=== PATIENT | female | born 1985 | race Caucasian/White ===

== ENCOUNTER 2016-09-29 16:33 | Inpatient (IN) | payer BC ==
[~2016-09-29 16:33] MED LIST: Lidocaine 1% 50 ML MDV INJECT SCH
[2016-09-29] MEDS ORDERED: Sodium Chloride 0.9% 10 ML Syringe FLUSH PRN (18:23)
[2016-09-29] MEDS ORDERED: Ondansetron 4 MG Tab.DIS PO PRN (18:23)
[2016-09-29] MEDS ORDERED: fentaNYL 100 MCG/2 ML SDV IVPUSH PRN (18:23)
[2016-09-29] MEDS ORDERED: Acetaminophen 325 MG Tab PO PRN (18:23)
--- NOTE | 2016-09-29 18:40 | PCM.LDHP ---
L&D History of Present Illness - General Date of Service: 09/29/16 (labor) Admit Problem/Dx: Patient Status Order with Admit Dx/Problem 09/29/16 18:23 Patient Status [ADT] Routine Admission Diagnosis/Problem Admission Diagnosis/Problem Labor established Source of Information: Patient History Limitations: Reports: No Limitations - History of Present Illness Introduction:: 39 2/7 NACHO 10/04/16 presents with contractions. since this afternoon. CE 4/ 80/0 vertex, AROM clear at 1830 Labs: ABO B pos GBS neg Rubella Immune HIV neg Timing/Duration: Reports: minutes: (2-3) Location, : Reports: Abdomen Quality: Reports: Pressure Severity: Mild Improves with: Reports: None Worsens with: Reports: None Associated Symptoms: Reports: vaginal fluid - Related Data Allergies/Adverse Reactions: Allergies Allergy/AdvReac Type Severity Reaction Status Date / Time azithromycin [From Zithromax] Allergy Itching Verified 09/27/16 21:58 Home Medications: Home Meds Vits #93/Iron Fum/FA [ Formula Tablet] 1 each PO DAILY [History] Past Medical History Genitourinary History: Reports: UTI, Recurrent [employer] History: Reports: : 4 Para: 1 LMP (Approximate): (NACHO 10/04/16) Other OB/BYN History: NACHO-10/04/2016 Psychiatric History: Reports: Other (See Below) Other Psychiatric History: depression - Infectious Disease History Infectious Disease History: Reports: Chicken Pox - Past Surgical History Head Surgeries/Procedures: Reports: None Social & Family History - Family History Cardiac: Reports: High Cholesterol GI: Reports: Irritable Bowel Syndrome Psychiatric: Reports: Anxiety, Depression - Tobacco Use Smoking Status *Q: Never Smoker Second Hand Smoke Exposure: No - Caffeine Use Caffeine Use: Reports: Soda Other Caffeine Use: very occassional - Recreational Drug Use Recreational Drug Use: No H&P Review of Systems - Review of Systems: Review Of Systems: See Below General: Reports: No Symptoms HEENT: Reports: No Symptoms Pulmonary: Reports: No Symptoms Cardiovascular: Reports: No Symptoms Gastrointestinal: Reports: No Symptoms Genitourinary: Reports: No Symptoms Musculoskeletal: Reports: No Symptoms Skin: Reports: No Symptoms Psychiatric: Reports: No Symptoms Neurological: Reports: No Symptoms Hematologic/Lymphatic: Reports: No Symptoms Immunologic: Reports: No Symptoms L&D Exam - Exam Exam: See Below - Vital Signs Weight: 220 lb - OB Specific Contraction Intensity: Mild Movement: Active Heart Tones: Present Heart Tones per Min: 120 Heart Rate (FHR) Variability: Moderate (6-25 bmp) Presentation: Vertex Estimated Weight: 8-9 pounds - Vargas Score Vargas Score Cervix Position: Anterior Vargas Score Consistency: Soft Vargas Score Effacement: >80% Vargas Score Dilation: 3-4 cm Vargas Score Infant's Station: -1 ,0 Vargas Score Total: 11 - Exam General: Alert, Oriented HEENT: PERRLA, Conjunctiva Clear, Hearing Intact, Mucosa Moist & [place], Posterior Pharynx Clear, Pupils Equal Neck: Supple Lungs: Clear to Auscultation, Normal Respiratory Effort Cardiovascular: Regular Rate, Regular Rhythm GI/Abdominal Exam: Normal Bowel Sounds, Soft, Non-Tender Rectal Exam: Normal Exam Genitourinary: Normal external exam, Cervical dilitation, Enlarged uterus Back Exam: Normal Inspection, Full Range of Motion Extremities: Normal Inspection, Normal Capillary Refill, Pedal Edema (varicose veins) Skin: Warm, Dry Neurological: Cranial Nerves Intact, Reflexes Equal Bilateral Psychiatric: Alert, Normal Affect, Normal Mood - Patient Data Lab Results Last 24 hrs: Laboratory Results - last 24 hr 09/29/16 Range/Units 16:41 Urine Color Yellow Urine Appearance Cloudy Urine pH 6.0 (4.5-8.0) Ur Specific [place] 1.020 (1.008-1.030) Urine Protein Negative (NEGATIVE) mg/dL Urine Glucose (UA) Normal (NEGATIVE) mg/dL Urine Ketones 15 H (NEGATIVE) mg/dL Urine Occult Blood Negative (NEGATIVE) Urine Nitrite Negative (NEGATIVE) Urine Bilirubin Negative (NEGATIVE) Urine Urobilinogen Normal (NORMAL) mg/dL Ur Leukocyte Esterase Negative (NEGATIVE) Urine RBC 0-5 (0-5) Urine WBC 0-5 (0-5) Ur Epithelial Cells Many Amorphous Sediment Not seen Urine Bacteria Moderate Urine Mucus Few - Problem List (1) UTI (urinary tract infection) SNOMED Code(s): 34581073 ICD Code: N39.0 - URINARY TRACT INFECTION, SITE NOT SPECIFIED Status: Acute Current Visit: Yes Qualifiers: Urinary tract infection type: acute cystitis (2) Active labor SNOMED Code(s): 63280619 ICD Code: ASX9302 - Status: Acute Current Visit: Yes (3) SNOMED Code(s): 77978471 ICD Code: Z34.90 - ENCNTR FOR SUPRVSN OF NORMAL , UNSP, UNSP TRIMESTER Status: Acute Current Visit: Yes Qualifiers: Weeks of gestation: 39 weeks Qualified Code(s): Z3A.39 - 39 weeks gestation of Problem List Initiated/Reviewed/Updated: Yes Orders Last 24hrs: Active Orders 24 hr Category Date Time Status Patient Status [ADT] Routine ADT 09/29/16 18:23 Ordered Antiembolic Devices [RC] .Routine Care 09/29/16 18:32 Ordered Communication Order [RC] ASDIRECTED Care 09/29/16 18:23 Ordered Heart Tones [RC] PER UNIT ROUTINE Care 09/29/16 18:23 Ordered May Shower [RC] ASDIRECTED Care 09/29/16 18:23 Ordered Notify Provider Vital Signs [RC] PRN Care 09/29/16 18:23 Ordered Notify Provider [RC] PRN Care 09/29/16 18:23 Ordered OB Check [OM.PC] Click to Edit Care 09/29/16 16:41 Ordered Up ad Sara [RC] ASDIRECTED Care 09/29/16 18:23 Ordered VTE/DVT Education [RC] Click to Edit Care 09/29/16 18:32 Ordered Vital Signs [RC] PER UNIT ROUTINE Care 09/29/16 18:23 Ordered Regular Diet [DIET] Diet 09/29/16 Dinner Ordered CBC W/O DIFF,HEMOGRAM [HEME] Routine Lab 09/29/16 18:23 Ordered Acetaminophen [Tylenol] Med 09/29/16 18:23 Ordered 650 mg PO Q4H PRN Ondansetron [Zofran ODT] Med 09/29/16 18:23 Ordered 4 mg PO Q4H PRN Oxytocin/Normal Saline [Pitocin in NS 20 Units/1,000 ML Med 09/29/16 18:45 Ordered ] 1,000 ml IV TITRATE Sodium Chloride 0.9% [Saline Flush] Med 09/29/16 18:23 Ordered 10 ml FLUSH ASDIRECTED PRN fentaNYL [Sublimaze] Med 09/29/16 18:23 Ordered 100 mcg IVPUSH Q1H PRN DVT/VTE Prophylaxis Reflex [OM.PC] Routine Oth 09/29/16 18:23 Ordered Saline Lock Insert [OM.PC] Routine Oth 09/29/16 18:23 Ordered Resuscitation Status Routine Resus Stat 09/29/16 18:23 Ordered Medication Orders Acetaminophen (Tylenol) 650 mg PO Q4H PRN PRN Reason: Pain (Mild 1-3) and fever Fentanyl (Sublimaze) 100 mcg IVPUSH Q1H PRN PRN Reason: Pain (moderate 4-6) Oxytocin/Sodium Chloride (Pitocin In Ns 20 Units/1,000 Ml) 1,000 mls @ 6 mls/ hr IV TITRATE SD; 2 MUNITS/MIN PRN Reason: Protocol Ondansetron HCl (Zofran Odt) 4 mg PO Q4H PRN PRN Reason: Nausea/Vomiting Sodium Chloride (Saline Flush) 10 ml FLUSH ASDIRECTED PRN PRN Reason: Keep Vein Open Assessment/Plan Comment:: 09/29/16 39 2. AROM clear Labor monitor for progression GBS negative Pain management per patient request Plan for vaginal delivery
[2016-09-29] MEDS ORDERED: Oxytocin 10 Units/1 ML SDV ONE (19:53)
[2016-09-29] MEDS ORDERED: Lidocaine 1% 50 ML MDV ONE (19:53)
[2016-09-29] MEDS ORDERED: Naloxone 0.4 MG/ML SDV ONE (19:53)
--- NOTE | 2016-09-29 20:19 | PCM.PNLD ---
Labor Progress Note - VS & Meds Vital Signs: Last Vital Signs Temp 97.2 F 09/29/16 19:46 Pulse 69 09/29/16 19:46 Resp 20 09/29/16 19:46 BP 149/86 H 09/29/16 19:46 Pulse Ox 98 09/29/16 19:46 Active Medications: Current Medications Acetaminophen (Tylenol) 650 mg PO Q4H PRN PRN Reason: Pain (Mild 1-3) and fever Fentanyl (Sublimaze) 100 mcg IVPUSH Q1H PRN PRN Reason: Pain (moderate 4-6) Last Admin: 09/29/16 20:13 Dose: 100 mcg Oxytocin/Sodium Chloride (Pitocin In Ns 20 Units/1,000 Ml) 20 unit in 1,000 mls @ 6 mls/hr IV TITRATE SD; 2 MUNITS/MIN PRN Reason: Protocol Last Admin: 09/29/16 20:14 Dose: 2 munits/min, 6 mls/hr Ondansetron HCl (Zofran Odt) 4 mg PO Q4H PRN PRN Reason: Nausea/Vomiting Sodium Chloride (Saline Flush) 10 ml FLUSH ASDIRECTED PRN PRN Reason: Keep Vein Open Discontinued Medications Oxytocin/Sodium Chloride (Pitocin In Ns 20 Units/1,000 Ml) Confirm Administered Dose 20 unit in 1,000 mls @ as directed .ROUTE .STK-MED ONE Stop: 09/29/16 19:55 Lidocaine HCl (Xylocaine 1%) Confirm Administered Dose 100 ml .ROUTE .STK-MED ONE Stop: 09/29/16 19:54 Naloxone HCl (Narcan) Confirm Administered Dose 0.4 mg .ROUTE .STK-MED ONE Stop: 09/29/16 19:54 Oxytocin (Pitocin) Confirm Administered Dose 10 unit .ROUTE .STK-MED ONE Stop: 09/29/16 19:54 - Uterine Contractions Uterine Monitoring Mode: External [place] Contraction Frequency (min): 2-3 Contraction Duration (sec): 50-70 Contraction Intensity: Strong Uterine Resting Tone: Soft - Monitoring Monitor Mode: Doppler/Auscultation Heart Rate (FHR) Baseline: 1,120 Heart Rate (FHR) Variability: Moderate (6-25 bmp) Accelerations: Present, 15x15 Strip Review: Category I - Vaginal Exam Dilation (cm): 6-7 Effacement (Percent): 100 Station: 0 Cervical Position: Anterior Sterile Vaginal Exam Performed By: Susie Gunn Vaginal Exam Comment: nice progression, - Labor Progress (Free Text) Labor Progress: 09/29/16 Requesting IV pain medication. Fentanyl 50 mcg IV given, In tub anticipate vaginal delivery
[2016-09-29] MEDS ORDERED: Ibuprofen 200 MG Tab, 24 Tab Bulk Bottle PO PRN (21:16)
[2016-09-29] MEDS ORDERED: Benzocaine 20% Top Spray 56 GM Bottle TOP PRN (21:16)
[2016-09-29] MEDS ORDERED: Witch Hazel Medicated Pads 100/Jar TOP PRN (21:16)
[2016-09-29] MEDS ORDERED: Acetaminophen 325 MG Tab, 50 Tab Bulk Bottle PO PRN (21:16)
[2016-09-29] MEDS ORDERED: Lanolin 100% Cream 40 GM Tube TOP PRN (21:16)
--- NOTE | 2016-09-29 21:39 | PCM.DEL ---
L & D Note - General Info Date of Service: 09/29/16 (delivery) Mother's Due Date: 10/04/16 - Delivery Note Labor: Spontaneous Delivery Outcome: Livebirth Infant Delivery Method: Spontaneous Vaginal Delivery Infant Delivery Mode: Spontaneous Presentation: Vertex Nuchal Cord: None Anesthesia Type: Local Anesthetic: Lidocaine (Xylocaine) 1% Plain Local Anesthetic Volume: Other (10 cc) Amniotic Fluid Description: Clear Episiotomy Type: None Laceration: 2nd Degree, Perineal Suture type: Vicryl Suture size: 3-0 Placenta: Intact, Spontaneous Cord: 3 Vessels Estimated Blood Loss: 200 Resuscitation Needed: Yes : Stimulated, Warmed, [place] Used Provider: Susie Gunn Score 1 min: 8 Score 5 min: 9 Score 10 min: 10 Post Delivery Events: Shoulder Dystocia Second Stage Interventions: Reports: Second Nurse Reviewed Heart Tones, Pushing Effectively, Pushing, McRobert's Position Delivery Comments (Free Text/Narrative):: 09/29/16 This 30 year old G4 P now 2 who is 39 2/7 weeks delivered a viable male infant at 2041 via in [place]. Shoulder dystocia, Mc [place] position with suprapubic pressure times one minute. As I started to rotate baby to release anterior shoulder he delivered into my arms. He cried some, was moving and trying to breathe. The cord was clamped and cut he was taken to the warmer where he was dried and stimulated. I used PPV times three breaths, he cried spontaneously and had good tone and heart rate 170's. weight 9.6 Apgars 8,9,10, three vessel cord The placenta was expressed spontaneously intact. The previous episiotomy scar tore, second degree perineal; tear was repaired with 3-0 vicryl in standard fashion. inspection of cervix, vaginal vault and rectum no lacerations. EBL 200cc Mother and baby to post and nursery in stable condition. first stage 8655-9249 Second stage 2227-0087 Third stage 6132-4804 - General Info Date of Service: 09/29/16 Admission Dx/Problem (Free Text): Patient Status Order with Admit Dx/Problem 09/29/16 18:23 Patient Status [ADT] Routine Admission Diagnosis/Problem Admission Diagnosis/Problem Labor established Functional Status: Reports: Pain Controlled - Review of Systems General: Reports: No Symptoms HEENT: Reports: No Symptoms Pulmonary: Reports: No Symptoms Cardiovascular: Reports: No Symptoms Gastrointestinal: Reports: No Symptoms Genitourinary: Reports: No Symptoms Musculoskeletal: Reports: No Symptoms Skin: Reports: No Symptoms Neurological: Reports: No Symptoms Psychiatric: Reports: No Symptoms - Patient Data Vitals - Most Recent: Last Vital Signs Temp 97.2 F 09/29/16 19:46 Pulse 69 09/29/16 19:46 Resp 20 09/29/16 19:46 BP 149/86 H 09/29/16 19:46 Pulse Ox 98 09/29/16 19:46 Weight - Most Recent: 220 lb Lab Results Last 24 Hours: Laboratory Results - last 24 hr 09/29/16 09/29/16 Range/Units 16:41 18:59 WBC 13.6 H (4.5-11.0) K/uL RBC 3.78 (3.30-5.50) M/uL Hgb 10.9 L (12.0-15.0) g/dL Hct 33.4 L (36.0-48.0) % MCV 88 (80-98) fL MCH 29 (27-31) pg MCHC 33 (32-36) % Plt Count 199 (150-400) K/uL Urine Color Yellow Urine Appearance Cloudy Urine pH 6.0 (4.5-8.0) Ur Specific [place] 1.020 (1.008-1.030) Urine Protein Negative (NEGATIVE) mg/dL Urine Glucose (UA) Normal (NEGATIVE) mg/dL Urine Ketones 15 H (NEGATIVE) mg/dL Urine Occult Blood Negative (NEGATIVE) Urine Nitrite Negative (NEGATIVE) Urine Bilirubin Negative (NEGATIVE) Urine Urobilinogen Normal (NORMAL) mg/dL Ur Leukocyte Esterase Negative (NEGATIVE) Urine RBC 0-5 (0-5) Urine WBC 0-5 (0-5) Ur Epithelial Cells Many Amorphous Sediment Not seen Urine Bacteria Moderate Urine Mucus Few Med Orders - Current: Current Medications Acetaminophen (Tylenol) 650 mg PO Q4H PRN PRN Reason: Pain (Mild 1-3) and fever Fentanyl (Sublimaze) 100 mcg IVPUSH Q1H PRN PRN Reason: Pain (moderate 4-6) Last Admin: 09/29/16 20:13 Dose: 100 mcg Oxytocin/Sodium Chloride (Pitocin In Ns 20 Units/1,000 Ml) 20 unit in 1,000 mls @ 6 mls/hr IV TITRATE SD; 2 MUNITS/MIN PRN Reason: Protocol Last Admin: 09/29/16 20:14 Dose: 2 munits/min, 6 mls/hr Ondansetron HCl (Zofran Odt) 4 mg PO Q4H PRN PRN Reason: Nausea/Vomiting Sodium Chloride (Saline Flush) 10 ml FLUSH ASDIRECTED PRN PRN Reason: Keep Vein Open Discontinued Medications Oxytocin/Sodium Chloride (Pitocin In Ns 20 Units/1,000 Ml) Confirm Administered Dose 20 unit in 1,000 mls @ as directed .ROUTE .STK-MED ONE Stop: 09/29/16 19:55 Lidocaine HCl (Xylocaine 1%) Confirm Administered Dose 100 ml .ROUTE .STK-MED ONE Stop: 09/29/16 19:54 Last Admin: 09/29/16 21:17 Dose: 50 ml Naloxone HCl (Narcan) Confirm Administered Dose 0.4 mg .ROUTE .STK-MED ONE Stop: 09/29/16 19:54 Oxytocin (Pitocin) Confirm Administered Dose 10 unit .ROUTE .STK-MED ONE Stop: 09/29/16 19:54 - Exam General: Alert, Oriented HEENT: Pupils Equal, Pupils Reactive, EOMI, Mucous Membr. Moist/[place] Neck: Supple Lungs: Clear to Auscultation, Normal Respiratory Effort Cardiovascular: Regular Rate, Regular Rhythm GI/Abdominal Exam: Normal Bowel Sounds, Soft, Non-Tender (Female) Exam: Normal External Exam, Enlarged Uterus, Vaginal Bleeding Back Exam: Normal Inspection Extremities: Normal Inspection, Normal Range of Motion, Non-Tender, Normal Capillary Refill Skin: Warm, Dry, Intact Neurological: No New Focal Deficit Psy/Mental Status: Alert, Normal Affect, Normal Mood - Problem List & Annotations (1) UTI (urinary tract infection) SNOMED Code(s): 36604942 Code(s): N39.0 - URINARY TRACT INFECTION, SITE NOT SPECIFIED Status: Acute Current Visit: Yes Qualifiers: Urinary tract infection type: acute cystitis (2) Active labor SNOMED Code(s): 40187264 Code(s): QSU0602 - Status: Acute Current Visit: Yes (3) SNOMED Code(s): 27146099 Code(s): Z34.90 - ENCNTR FOR SUPRVSN OF NORMAL , UNSP, UNSP TRIMESTER Status: Acute Current Visit: Yes Qualifiers: Weeks of gestation: 39 weeks Qualified Code(s): Z3A.39 - 39 weeks gestation of - Problem List Review Problem List Initiated/Reviewed/Updated: Yes - My Orders Last 24 Hours: My Active Orders 09/29/16 16:41 OB Check [OM.PC] Click to Edit 09/29/16 18:23 Communication Order [RC] ASDIRECTED May Shower [RC] ASDIRECTED Notify Provider Vital Signs [RC] PRN Notify Provider [RC] PRN Up ad Sara [RC] ASDIRECTED Vital Signs [RC] PER UNIT ROUTINE Acetaminophen [Tylenol] 650 mg PO Q4H PRN Ondansetron [Zofran ODT] 4 mg PO Q4H PRN Sodium Chloride 0.9% [Saline Flush] 10 ml FLUSH ASDIRECTED PRN fentaNYL [Sublimaze] 100 mcg IVPUSH Q1H PRN DVT/VTE Prophylaxis Reflex [OM.PC] Routine Saline Lock Insert [OM.PC] Routine Resuscitation Status Routine 09/29/16 18:32 Antiembolic Devices [RC] .Routine VTE/DVT Education [RC] Click to Edit 09/29/16 18:45 Oxytocin/Normal Saline [Pitocin in NS 20 Units/1,000 ML] 20 unit in 1,000 ml IV TITRATE 09/29/16 21:16 Acetaminophen [Tylenol Bulk Bottle] 325 mg PO Q4H PRN Benzocaine [[id number] 20% [place]] See Dose Instructions TOP Q4H PRN Ibuprofen [Motrin Bulk Bottle] 600 mg PO Q6H PRN Lanolin [Lansinoh HPA] 1 gm TOP ASDIRECTED PRN Witch Rosalva [Tucks] 1 pad TOP ASDIRECTED PRN Assess Lochia [WOMSER] Per Unit Routine Assess Uterine Involution [WOMSER] Per Unit Routine 09/29/16 21:17 Patient Status [ADT] Routine Vital Signs [RC] PFP Ice Therapy [OM.PC] Per Unit Routine Perineal Care [OM.PC] Per Unit Routine Sitz Bath [OM.PC] Per Unit Routine 09/29/16 21:18 Peripheral IV Discontinue [OM.PC] Routine 09/29/16 Dinner Regular Diet [DIET] 09/30/16 05:11 CBC WITH AUTO DIFF [HEME] AM 09/30/16 09:00 Docusate Sodium [Colace] 100 mg PO BID - Assessment Assessment:: 09/29/16 with shoulder dystocia, reduced. perineal tear second degree repaired. negative GBS - Plan Plan:: 09/29/16 39 2/. AROM clear Labor monitor for progression GBS negative Pain management per patient request Plan for vaginal delivery 09/29/16 routine cares HGB in am support sitz bath monitor for bleeding today 24-48 hour stay.
[2016-09-30] MEDS: Docusate Sodium 100 MG Cap PO SCH ×2 (09:48→20:29)
--- NOTE | 2016-09-30 11:14 | PCM.PNPP ---
- General Info Date of Service: 09/30/16 (PPD 1) Admission Dx/Problem (Free Text): Patient Status Order with Admit Dx/Problem 09/29/16 18:23 Patient Status [ADT] Routine Admission Diagnosis/Problem Admission Diagnosis/Problem Labor established Functional Status: Reports: Pain Controlled - Review of Systems General: Reports: No Symptoms HEENT: Reports: No Symptoms Pulmonary: Reports: No Symptoms Cardiovascular: Reports: No Symptoms Gastrointestinal: Reports: No Symptoms Genitourinary: Reports: No Symptoms Musculoskeletal: Reports: No Symptoms Skin: Reports: No Symptoms Neurological: Reports: No Symptoms Psychiatric: Reports: No Symptoms - General Info Date of Service: 09/30/16 - Patient Data Vital Signs - Most Recent: Last Vital Signs Temp 97.4 F 09/30/16 07:34 Pulse 66 09/30/16 07:34 Resp 16 09/30/16 07:34 BP 132/74 09/30/16 07:34 Pulse Ox 100 09/30/16 07:34 Weight - Most Recent: 220 lb I&O - Last 24 Hours: Intake & Output 09/29/16 09/30/16 09/30/16 22:59 06:59 14:59 Intake Total 1000 1000 Balance 1000 1000 Lab Results - Last 24 Hours: Laboratory Results - last 24 hr 09/29/16 09/29/16 09/30/16 Range/Units 16:41 18:59 05:45 WBC 13.6 H 17.3 H (4.5-11.0) K/uL RBC 3.78 3.07 L (3.30-5.50) M/uL Hgb 10.9 L 9.0 L (12.0-15.0) g/dL Hct 33.4 L 27.3 L (36.0-48.0) % MCV 88 89 (80-98) fL MCH 29 29 (27-31) pg MCHC 33 33 (32-36) % Plt Count 199 164 (150-400) K/uL Neut % (Auto) 80 H (36-66) % Lymph % (Auto) 10 L (24-44) % [place] % (Auto) 9 H (2-6) % Eos % (Auto) 0 L (2-4) % Baso % (Auto) 0 (0-1) % Urine Color Yellow Urine Appearance Cloudy Urine pH 6.0 (4.5-8.0) Ur Specific [place] 1.020 (1.008-1.030) Urine Protein Negative (NEGATIVE) mg/dL Urine Glucose (UA) Normal (NEGATIVE) mg/dL Urine Ketones 15 H (NEGATIVE) mg/dL Urine Occult Blood Negative (NEGATIVE) Urine Nitrite Negative (NEGATIVE) Urine Bilirubin Negative (NEGATIVE) Urine Urobilinogen Normal (NORMAL) mg/dL Ur Leukocyte Esterase Negative (NEGATIVE) Urine RBC 0-5 (0-5) Urine WBC 0-5 (0-5) Ur Epithelial Cells Many Amorphous Sediment Not seen Urine Bacteria Moderate Urine Mucus Few Med Orders - Current: Current Medications Acetaminophen (Tylenol Bulk Bottle) 325 - 650 mg PO Q4H PRN PRN Reason: Pain Benzocaine (Vhmv-C-Hvycilw 20% [place]) 0 gm TOP Q4H PRN PRN Reason: Perineal Comfort Measure Last Admin: 09/29/16 22:28 Dose: 1 spray Docusate Sodium (Colace) 100 mg PO BID SD Last Admin: 09/30/16 09:48 Dose: 100 mg Emollient Ointment (Lansinoh Hpa) 0 gm TOP ASDIRECTED PRN PRN Reason: Sore Nipples Oxytocin/Sodium Chloride (Pitocin In Ns 20 Units/1,000 Ml) 20 unit in 1,000 mls @ 6 mls/hr IV TITRATE SD; 2 MUNITS/MIN PRN Reason: Protocol Last Admin: 09/29/16 20:14 Dose: 2 munits/min, 6 mls/hr Ibuprofen (Motrin Bulk Bottle) 600 mg PO Q6H PRN PRN Reason: Pain Last Admin: 09/29/16 22:27 Dose: 600 mg Nitrofurantoin Macrocrystals (Macrobid) 100 mg PO BID SD Ondansetron HCl (Zofran Odt) 4 mg PO Q4H PRN PRN Reason: Nausea/Vomiting Sodium Chloride (Saline Flush) 10 ml FLUSH ASDIRECTED PRN PRN Reason: Keep Vein Open Witch Rosalva (Tucks) 1 pad TOP ASDIRECTED PRN PRN Reason: Hemorrhoids Last Admin: 09/29/16 22:26 Dose: 1 applic Discontinued Medications Acetaminophen (Tylenol) 650 mg PO Q4H PRN PRN Reason: Pain (Mild 1-3) and fever Fentanyl (Sublimaze) 100 mcg IVPUSH Q1H PRN PRN Reason: Pain (moderate 4-6) Last Admin: 09/29/16 20:13 Dose: 100 mcg Oxytocin/Sodium Chloride (Pitocin In Ns 20 Units/1,000 Ml) Confirm Administered Dose 20 unit in 1,000 mls @ as directed .ROUTE .STK-MED ONE Stop: 09/29/16 19:55 Last Admin: 09/29/16 22:28 Dose: Not Given Lidocaine HCl (Xylocaine 1%) Confirm Administered Dose 100 ml .ROUTE .STK-MED ONE Stop: 09/29/16 19:54 Last Admin: 09/29/16 21:17 Dose: 50 ml Naloxone HCl (Narcan) Confirm Administered Dose 0.4 mg .ROUTE .STK-MED ONE Stop: 09/29/16 19:54 Last Admin: 09/29/16 22:28 Dose: Not Given Oxytocin (Pitocin) Confirm Administered Dose 10 unit .ROUTE .STK-MED ONE Stop: 09/29/16 19:54 Last Admin: 09/29/16 22:28 Dose: Not Given - Interaction Infant Disposition, : [place] in Room with Family Interaction: Holding Infant Infant Feeding: Breastfed Infant; Nursed Well Support Person: - Recovery Exam Fundal Tone: Firm Fundal Level: 1 Fingerbreadths Below Umbilicus Fundal Placement: Midline Lochia Amount: Small Lochia Color: Rubra/Red Perineum Description: Intact, Minimal Bruising/Swelling Episiotomy/Laceration: Approximated Bladder Status: Voiding - Exam General: Alert, Oriented HEENT: Pupils Equal Neck: Supple Lungs: Clear to Auscultation, Normal Respiratory Effort Cardiovascular: Regular Rate, Regular Rhythm GI/Abdominal Exam: Normal Bowel Sounds, Soft, Non-Tender, No Organomegaly, No Distention, No Abnormal Bruit, No Mass, Pelvis Stable Extremities: Normal Inspection, Normal Range of Motion, Non-Tender, No Pedal Edema, Normal Capillary Refill Skin: Warm, Dry, Intact Wound/Incisions: Healing Well Neurological: No New Focal Deficit Psy/Mental Status: Alert, Normal Affect, Normal Mood - Problem List & Annotations (1) UTI (urinary tract infection) SNOMED Code(s): 09690417 Code(s): N39.0 - URINARY TRACT INFECTION, SITE NOT SPECIFIED Status: Acute Current Visit: Yes Qualifiers: Urinary tract infection type: acute cystitis (2) Active labor SNOMED Code(s): 09354806 Code(s): BGK9330 - Status: Acute Current Visit: Yes (3) SNOMED Code(s): 79172242 Code(s): Z34.90 - ENCNTR FOR SUPRVSN OF NORMAL , UNSP, UNSP TRIMESTER Status: Acute Current Visit: Yes Qualifiers: Weeks of gestation: 39 weeks Qualified Code(s): Z3A.39 - 39 weeks gestation of - Problem List Review Problem List Initiated/Reviewed/Updated: Yes - My Orders Last 24 Hours: My Active Orders 09/29/16 16:41 OB Check [OM.PC] Click to Edit 09/29/16 18:23 May Shower [RC] ASDIRECTED Notify Provider Vital Signs [RC] PRN Notify Provider [RC] PRN Up ad Sara [RC] ASDIRECTED Vital Signs [RC] Q4H Ondansetron [Zofran ODT] 4 mg PO Q4H PRN Sodium Chloride 0.9% [Saline Flush] 10 ml FLUSH ASDIRECTED PRN DVT/VTE Prophylaxis Reflex [OM.PC] Routine Saline Lock Insert [OM.PC] Routine Resuscitation Status Routine 09/29/16 18:32 Antiembolic Devices [RC] .Routine VTE/DVT Education [RC] Click to Edit 09/29/16 18:45 Oxytocin/Normal Saline [Pitocin in NS 20 Units/1,000 ML] 20 unit in 1,000 ml IV TITRATE 09/29/16 21:16 Acetaminophen [Tylenol Bulk Bottle] 325 - 650 mg PO Q4H PRN Benzocaine [Yhmf-N-Ktvtugg 20% [place]] See Dose Instructions TOP Q4H PRN Ibuprofen [Motrin Bulk Bottle] 600 mg PO Q6H PRN Lanolin [Lansinoh HPA] 0 gm TOP ASDIRECTED PRN Witch Rosalva [Tucks] 1 pad TOP ASDIRECTED PRN Assess Lochia [WOMSER] Per Unit Routine Assess Uterine Involution [WOMSER] Per Unit Routine 09/29/16 21:17 Patient Status [ADT] Routine Ice Therapy [OM.PC] Per Unit Routine Perineal Care [OM.PC] Per Unit Routine Sitz Bath [OM.PC] Per Unit Routine 09/29/16 21:18 Peripheral IV Discontinue [OM.PC] Routine 09/29/16 Dinner Regular Diet [DIET] 09/30/16 09:00 Docusate Sodium [Colace] 100 mg PO BID 09/30/16 21:00 Nitrofurantoin [place]/Macrocryst [Macrobid] 100 mg PO BID - Assessment Assessment:: 09/29/16 with shoulder dystocia, reduced. perineal tear second degree repaired. negative GBS 09/30/16 Doing well today HGB 9 from 10.9 Bleeding has slowed. repair not tender, voiding without problems - Plan Plan:: 09/29/16 39 2/7. AROM clear Labor monitor for progression GBS negative Pain management per patient request Plan for vaginal delivery 09/29/16 routine cares HGB in am support sitz bath monitor for bleeding today 24-48 hour stay. 09/30/16 Routine cares Home tomorrow
[2016-09-30] MEDS: NITROFURANTOIN PO SCH (20:29)
[2016-09-30] MEDS: [UNRECOGNIZED DRUG - OTHER] PO SCH (20:29)
[2016-10-01 07:48] VITALS: BP 118/68
--- NOTE | 2016-10-01 09:38 | PCM.PNPP ---
- General Info Date of Service: 10/01/16 (PPD 2 D/C) Admission Dx/Problem (Free Text): Patient Status Order with Admit Dx/Problem 09/29/16 18:23 Patient Status [ADT] Routine Admission Diagnosis/Problem Admission Diagnosis/Problem Labor established Functional Status: Reports: Pain Controlled - Review of Systems General: Reports: No Symptoms HEENT: Reports: No Symptoms Pulmonary: Reports: No Symptoms Cardiovascular: Reports: No Symptoms Gastrointestinal: Reports: No Symptoms Genitourinary: Reports: No Symptoms Musculoskeletal: Reports: No Symptoms Skin: Reports: No Symptoms Neurological: Reports: No Symptoms Psychiatric: Reports: No Symptoms - General Info Date of Service: 10/01/16 - Patient Data Vital Signs - Most Recent: Last Vital Signs Temp 97.4 F 10/01/16 07:47 Pulse 73 10/01/16 07:47 Resp 16 10/01/16 07:47 BP 118/68 10/01/16 07:47 Pulse Ox 97 10/01/16 07:47 Weight - Most Recent: 220 lb I&O - Last 24 Hours: Intake & Output 09/30/16 10/01/16 10/01/16 22:59 06:59 14:59 Intake Total 1000 Balance 1000 Med Orders - Current: Current Medications Acetaminophen (Tylenol Bulk Bottle) 325 - 650 mg PO Q4H PRN PRN Reason: Pain Benzocaine (Dzhl-[id number]-Lrwpmlx 20% [place]) 0 gm TOP Q4H PRN PRN Reason: Perineal Comfort Measure Last Admin: 09/29/16 22:28 Dose: 1 spray Docusate Sodium (Colace) 100 mg PO BID SD Last Admin: 09/30/16 20:29 Dose: 100 mg Emollient Ointment (Lansinoh Hpa) 0 gm TOP ASDIRECTED PRN PRN Reason: Sore Nipples Last Admin: 09/30/16 17:15 Dose: 1 applic Oxytocin/Sodium Chloride (Pitocin In Ns 20 Units/1,000 Ml) 20 unit in 1,000 mls @ 6 mls/hr IV TITRATE SD; 2 MUNITS/MIN PRN Reason: Protocol Last Admin: 09/29/16 20:14 Dose: 2 munits/min, 6 mls/hr Ibuprofen (Motrin Bulk Bottle) 600 mg PO Q6H PRN PRN Reason: Pain Last Admin: 09/29/16 22:27 Dose: 600 mg Nitrofurantoin Macrocrystals (Macrobid) 100 mg PO BID [facility] Last Admin: 09/30/16 20:29 Dose: 100 mg Ondansetron HCl (Zofran Odt) 4 mg PO Q4H PRN PRN Reason: Nausea/Vomiting Sodium Chloride (Saline Flush) 10 ml FLUSH ASDIRECTED PRN PRN Reason: Keep Vein Open Witch Rosalva (Tucks) 1 pad TOP ASDIRECTED PRN PRN Reason: Hemorrhoids Last Admin: 09/29/16 22:26 Dose: 1 applic Discontinued Medications Acetaminophen (Tylenol) 650 mg PO Q4H PRN PRN Reason: Pain (Mild 1-3) and fever Fentanyl (Sublimaze) 100 mcg IVPUSH Q1H PRN PRN Reason: Pain (moderate 4-6) Last Admin: 09/29/16 20:13 Dose: 100 mcg Oxytocin/Sodium Chloride (Pitocin In Ns 20 Units/1,000 Ml) Confirm Administered Dose 20 unit in 1,000 mls @ as directed .ROUTE .STK-MED ONE Stop: 09/29/16 19:55 Last Admin: 09/29/16 22:28 Dose: Not Given Lidocaine HCl (Xylocaine 1%) Confirm Administered Dose 100 ml .ROUTE .STK-MED ONE Stop: 09/29/16 19:54 Last Admin: 09/29/16 21:17 Dose: 50 ml Lidocaine HCl (Xylocaine 1%) 50 ml INJECT ASDIRECTED [facility] Stop: 09/29/16 23:00 Naloxone HCl (Narcan) Confirm Administered Dose 0.4 mg .ROUTE .STK-MED ONE Stop: 09/29/16 19:54 Last Admin: 09/29/16 22:28 Dose: Not Given Oxytocin (Pitocin) Confirm Administered Dose 10 unit .ROUTE .STK-MED ONE Stop: 09/29/16 19:54 Last Admin: 09/29/16 22:28 Dose: Not Given - Interaction Disposition, : [place] in Room with Family Infant Interaction: Holding Infant Feeding: Breastfed ; Nursed Well Support Person: - Recovery Exam Fundal Tone: Firm Fundal Level: 1 Fingerbreadths Below Umbilicus Fundal Placement: Midline Lochia Amount: Small Lochia Color: Rubra/Red Perineum Description: Intact, Minimal Bruising/Swelling Episiotomy/Laceration: Approximated Bladder Status: Voiding Urinary Elimination: Voided - Exam General: Alert, Oriented HEENT: Pupils Equal Neck: Supple Lungs: Clear to Auscultation, Normal Respiratory Effort Cardiovascular: Regular Rate, Regular Rhythm GI/Abdominal Exam: Normal Bowel Sounds, Soft, Non-Tender, No Organomegaly, No Distention, No Abnormal Bruit, No Mass, Pelvis Stable Extremities: Normal Inspection, Normal Range of Motion, Non-Tender, No Pedal Edema, Normal Capillary Refill Skin: Warm, Dry, Intact Wound/Incisions: Healing Well Neurological: No New Focal Deficit Psy/Mental Status: Alert, Normal Affect, Normal Mood - Problem List & Annotations (1) UTI (urinary tract infection) SNOMED Code(s): 96569940 Code(s): N39.0 - URINARY TRACT INFECTION, SITE NOT SPECIFIED Status: Acute Current Visit: Yes Qualifiers: Urinary tract infection type: acute cystitis (2) Active labor SNOMED Code(s): 54913598 Code(s): EJX9615 - Status: Acute Current Visit: Yes (3) SNOMED Code(s): 03708652 Code(s): Z34.90 - ENCNTR FOR SUPRVSN OF NORMAL , UNSP, UNSP TRIMESTER Status: Acute Current Visit: Yes Qualifiers: Weeks of gestation: 39 weeks Qualified Code(s): Z3A.39 - 39 weeks gestation of - Problem List Review Problem List Initiated/Reviewed/Updated: Yes - My Orders Last 24 Hours: My Active Orders 09/30/16 09:00 Docusate Sodium [Colace] 100 mg PO BID 09/30/16 21:00 Nitrofurantoin [place]/Macrocryst [Macrobid] 100 mg PO BID - Assessment Assessment:: 09/29/16 with shoulder dystocia, reduced. perineal tear second degree repaired. negative GBS 09/30/16 Doing well today HGB 9 from 10.9 Bleeding has slowed. repair not tender, voiding without problems 10/01/16 Doing great, up and about bottom not painful, bleeding light well. wants to go real - Plan Plan:: 09/29/16 39 03/14. AROM clear Labor monitor for progression GBS negative Pain management per patient request Plan for vaginal delivery 09/29/16 routine cares HGB in am support sitz bath monitor for bleeding today 24-48 hour stay. 09/30/16 Routine cares Home tomorrow 10/01/16 Home today see me in 6-8 weeks for a post visit.
[2016-10-01] MEDS: NITROFURANTOIN PO SCH (10:52)
[2016-10-01] MEDS: [UNRECOGNIZED DRUG - OTHER] PO SCH (10:52)
[2016-10-01] MEDS: Docusate Sodium 100 MG Cap PO SCH (10:52)
== END 2016-10-01 10:50 | disposition home or self-care (01) | DRG 560 ==
LOC: JP.OBCHECK 16:33 → JP.OB 18:16 → OBSVTOIN 20:42 → JP.OB 20:42 → JP.MS 21:00
PROVIDERS: ADMIT Nurse Practitioner Family; ATTEND Nurse Practitioner Family
DX: O66.0 Obstructed labor due to shoulder dystocia (principal); O70.1 Second degree perineal laceration during delivery; O75.3 Other infection during labor; Z3A.39 39 weeks gestation of pregnancy; Z37.0 Single live birth; Z88.1 Allergy status to other antibiotic agents
CPT/HCPCS: 36415; 81001; 85025; 85027; 99211; A9270-GY; J2590; J3010

== ENCOUNTER 2018-04-04 06:23 | Day surgery (SDC) | payer BC ==
[2018-04-04] MEDS ORDERED: Sodium Tetradecyl Sulfate 1% 20 MG/2 ML SDV ONE (06:49)
[2018-04-04] MEDS ORDERED: Lidocaine 1% with EPINEPHrine 1:100,000 50 ML MDV ONE (06:50)
[2018-04-04] MEDS ORDERED: Sodium Chloride 0.9% 10 ML ONE (06:50)
[2018-04-04] MEDS ORDERED: Sodium Chloride 0.9% 1,000 ML IV SCH (07:00)
[2018-04-04] MEDS ORDERED: Midazolam 1 MG/ML 2 ML SDV ONE (07:18)
[2018-04-04] MEDS ORDERED: Propofol 200 MG/20 ML SDV ONE ×2 (07:18→07:41)
[2018-04-04] MEDS ORDERED: fentaNYL 100 MCG/2 ML SDV ONE (07:18)
[2018-04-04] MEDS ORDERED: Sodium Chloride 0.9% 10 ML SDV FLUSH ONE (07:57)
[2018-04-04] MEDS: Lidocaine 1% w/EPINEPHrine 50 ML, Sodium Bicarbonate 5 MEQ in Sodium Chloride 0.9% 950 ML INJECT SCH ×2 (07:58→08:08)
[2018-04-04 09:39] VITALS: BP 110/58
--- NOTE | 2018-04-04 13:14 | OR ---
DATE OF PROCEDURE: 04/04/2018 PROCEDURES: 1. Radiofrequency ablation of right greater saphenous vein. 2. Radiofrequency ablation of left greater saphenous vein. 3. Sclerotherapy of left leg, multiple. 4. Sclerotherapy of right leg, multiple. 5. Compression wrapping of left leg (45993). 6. Compression wrapping of right leg (57124). COMPLICATION: None. SERVICE MANAGER: None. ANESTHESIA: MAC. PREOPERATIVE DIAGNOSES: Venous insufficiency with inflammation and pain. POSTOPERATIVE DIAGNOSES: Venous insufficiency with inflammation and pain. RISKS: Risks, benefits, alternatives, and limitations including, but not limited to infection, bleeding, perforation, and DVT formation were explained to the patient, who wished to proceed. PROCEDURE IN DETAIL: The patient was placed in supine position. The right GSV was addressed first. This was accessed at the level of the ankle with 35,000th wire through a 21-gauge needle. This was exchanged for a 7-[place] sheath, and the RFA probe was advanced to 3 cm from the saphenofemoral junction. Tumescent fluid was injected in 1 cm jacket around this and verified a second and a third time. Direct even pressure was held as the probe was deployed x2 proximally and distally and x1 in all other segments. The sheath and device were then removed. Direct pressure was held for 10 minutes. Dermabond was applied. The opposite leg was performed in same manner, same fashion, same technique, in the same sequence, and using the same equipment. Sclerotherapy was then performed of left and right legs using 0.33% sodium tetradecyl. This was always drawn back to ensure intravascular injection only and no more than 2 mL was used in one location. There were six on the left and three on the right. Compression wrapping, two-stage, proximal to distal gradient, 20 mmHg pressure wrap was then performed in a [id number] fashion. The patient tolerated the procedure well. Burton Victoria MD /[id number]
== END 2018-04-04 10:01 | disposition home or self-care (01) ==
LOC: JP.SDS 06:23
PROVIDERS: ATTEND Surgery
DX: I83.11 Varicose veins of right lower extremity with inflammation (principal); I83.12 Varicose veins of left lower extremity with inflammation; I83.813 Varicose veins of bilateral lower extremities with pain; Z88.1 Allergy status to other antibiotic agents
CPT/HCPCS: 36471; 36475; J1642; J2250; J2704; J3010; J7030; J3490

== ENCOUNTER 2021-08-15 17:38 | Emergency (ER) | payer SELFPAY ==
[2021-08-15 17:57] VITALS: BP 154/85; PULSE 92
[2021-08-15] MEDS ORDERED: Bacitracin Oint 1 GM U/D Packet TOP ONE (19:18)
== END 2021-08-15 19:50 | disposition home or self-care (01) ==
LOC: JP.ED 17:38
DX: S63.501A Unspecified sprain of right wrist, initial encounter (principal); Z88.1 Allergy status to other antibiotic agents; W23.1XXA Caught, crushed, jammed, or pinched between stationary objects, initial encounter
CPT/HCPCS: 29125; 73110-26-RT; 73110-RT; 99283-25